=== PATIENT | male | born 1990 | race Caucasian/White ===

== ENCOUNTER 2023-03-14 14:30 | Emergency (ER) | payer SELFPAY ==
--- NOTE | 2023-03-14 16:15 | RAD REPORT ---
EXAM DESCRIPTION: RAD - Foot Right 3 View - 03/14/2023 3:36 pm CLINICAL HISTORY: Right foot swelling FINDINGS: No fracture or dislocation is seen No bone or joint abnormality noted
--- NOTE | 2023-03-14 16:37 | EDPHYS ---
Physician Documentation [facility] Name: Jacob Jackson Age: 32 yrs Sex: Male : 1990 Arrival Date: 03/14/2023 Time: 14:30 Bed 16 Private MD: ED Physician Garcia Kaplan HPI: 03/14 16:30 This 32 yrs old Male presents to ER via Ambulatory with complaints of Wound Infection. jmm 16:30 The patient presents with pain, that is acute. Onset: The symptoms/episode jmm began/occurred gradually. This is a 32 year old male with no chronic medical conditions that presents to the ED with complaints of swelling to the ball of his foot. Patient is concerned it may be the beginning of an infection. Denies fever, purulent drainage. Patient states he is exposed to salt water commonly. . Historical: - Allergies: 14:44 No Known Allergies; nj1 - PMHx: 14:44 None; nj1 - PSHx: 14:44 None; nj1 - Immunization history:: Client reports having NOT received the Covid vaccine. - Social history:: Smoking status: Patient reports the use of cigarette tobacco products, smokes one pack cigarettes per day. ROS: 16:30 Constitutional: Negative for fever, chills, and weight loss, Cardiovascular: Negative jmm for chest pain, palpitations, and edema, Respiratory: Negative for shortness of breath, cough, wheezing, and pleuritic chest pain. 16:30 Skin: Positive for swelling. 16:30 All other systems are negative. Exam: 16:30 Constitutional: This is a well developed, well nourished patient who is awake, alert, jmm and in no acute distress. Head/Face: atraumatic. Eyes: EOMI, no conjunctival erythema appreciated ENT: Moist Mucus Membranes Neck: Trachea midline, Supple Chest/axilla: Normal chest wall appearance and motion. Cardiovascular: Regular rate and rhythm. No edema appreciated Respiratory: Normal respirations, no respiratory distress appreciated Abdomen/GI: Non distended Back: Normal ROM 16:30 Skin: mild swelling noted to the ball of the right foot. . 16:30 Neuro: Orientation: is normal, Mentation: is normal, Memory: is normal. 16:30 Psych: Behavior/mood is pleasant, cooperative. Vital Signs: 14:40 BP 131 / 77; Pulse 80; Resp 18; Temp 98(O); Pulse Ox 99% ; Weight 68.04 kg; Height 6 nj1 ft. 2 in. ; Pain 0/10; 16:46 BP 128 / 76; Pulse 78; Resp 18; Pulse Ox 99% ; ko1 14:40 Body Mass Index 19.26 (68.04 kg, 187.96 cm) [facility] 14:40 Pain Scale: Adult nj1 MDM: 14:39 Patient medically screened. [facility] 16:34 Differential diagnosis: abscess, cellulitis, corns and callous. Data reviewed: vital [facility] signs, nurses notes. Counseling: I had a detailed discussion with the patient and/or guardian regarding: the historical points, exam findings, and any diagnostic results supporting the discharge/admit diagnosis, radiology results, the need for outpatient follow up, to return to the emergency department if symptoms worsen or persist or if there are any questions or concerns that arise at home. 03/14 14:42 Order name: Foot Right 3 View XRAY; Complete Time: 16:17 [facility] Administered Medications: 14:48 Drug: Doxycycline PO 100 mg Route: PO; [facility] Disposition: 17:18 Co-signature as Attending Physician, Garcia Kaplan MD I reviewed the patient's care rn provided by the Advanced Practice Provider and agree with the diagnosis and treatment plan. Disposition Summary: 03/14/23 16:36 Discharge Ordered Location: Home [facility] Condition: Stable [facility] Diagnosis - Pain in right foot [facility] Followup: [facility] - With: Omer Tenorio DPM - When: 2 - 3 days - Reason: Recheck today's complaints, Continuance of care, Re-evaluation by your physician Discharge Instructions: - Discharge Summary Sheet [facility] - Foot Pain [facility] Forms: - Medication Reconciliation Form [facility] - Thank You Letter [facility] - Antibiotic Education [facility] - Prescription Opioid Use [facility] - [email or web address] Prescriptions: - Doxycycline Hyclate 100 mg Oral Tablet - take 1 tablet by ORAL route every 12 hours; 20 tablet; Refills: 0, Product [facility] Selection Permitted Signatures: Dispatcher [employer] EDMilo Davis PA PA [facility] Garcia Kaplan MD MD rn Jaco, Norma, RN RN nj1
--- NOTE | 2023-03-14 16:37 | ER ---
Nurse's Notes [facility] Name: Jacob Jackson Age: 32 yrs Sex: Male : 1990 Arrival Date: 03/14/2023 Time: 14:30 Bed 16 Private MD: Diagnosis: Pain in right foot Presentation: 03/14 14:40 Chief complaint: Patient states: Right foot pain for about 3 days, getting worse. nj1 Concerned because he had an ulcer last year on the same spot while he was at [place]. Coronavirus screen: Vaccine status: Patient reports being unvaccinated. Ebola Screen: Patient denies travel to an Ebola-affected area in the 21 days before illness onset. Initial Sepsis Screen: Does the patient meet any 2 criteria? No. Patient's initial sepsis screen is negative. Does the patient have a suspected source of infection? No. Patient's initial sepsis screen is negative. Risk Assessment: Do you want to hurt yourself or someone else? Patient reports no desire to harm self or others. Onset of symptoms was March 11, 2023. 14:40 Method Of Arrival: Ambulatory [facility] 14:40 Acuity: DUANE 3 nj1 Historical: - Allergies: 14:44 No Known Allergies; nj1 - PMHx: 14:44 None; nj1 - PSHx: 14:44 None; nj1 - Immunization history:: Client reports having NOT received the Covid vaccine. - Social history:: Smoking status: Patient reports the use of cigarette tobacco products, smokes one pack cigarettes per day. Screenin:00 [facility] ED Fall Risk Assessment (Adult) History of falling in the last 3 months, ko1 including since admission No falls in past 3 months (0 pts) Confusion or Disorientation No (0 pts) Intoxicated or Sedated No (0 pts) Impaired Gait No (0 pts) Mobility Assist Device Used No (0 pt) Altered Elimination No (0 pt) Score/Fall Risk Level 0 - 2 = Low Risk Oriented to surroundings, Maintained a safe environment, Educated pt \T\ family on fall prevention, incl call for assistance when getting out of bed, Assessed \T\ reinforced patient's understanding of fall precautions, Provided non-skid footwear, Hourly rounding (assess needs \T\ fall precautionary measures) done, Used ambulatory aids as needed (educated on \T\ assisted with), Used gait belt as appropriate. Abuse screen: Denies threats or abuse. Denies injuries from another. Nutritional screening: No deficits noted. Tuberculosis screening: No symptoms or risk factors identified. Assessment: 15:00 General: Appears in no apparent distress. comfortable, Behavior is calm, cooperative, ko1 appropriate for age. Pain: Complains of pain in right foot. 15:00 Neuro: No deficits noted. Cardiovascular: No deficits noted. Respiratory: No deficits ko1 noted. GI: No deficits noted. : No deficits noted. EENT: No deficits noted. Derm: Reports pain that is 4 out of 10 on a pain scale. Musculoskeletal: No deficits noted. Vital Signs: 14:40 BP 131 / 77; Pulse 80; Resp 18; Temp 98(O); Pulse Ox 99% ; Weight 68.04 kg; Height 6 nj1 ft. 2 in. ; Pain 0/10; 16:46 BP 128 / 76; Pulse 78; Resp 18; Pulse Ox 99% ; ko1 14:40 Body Mass Index 19.26 (68.04 kg, 187.96 cm) [facility] 14:40 Pain Scale: Adult [facility] ED Course: 14:34 Patient arrived in ED. mr 14:34 Milo Canseco PA is PHCP. [facility] 14:34 Garcia Kaplan MD is Attending Physician. [facility] 14:44 Triage completed. nj1 14:45 Arm band placed on right wrist. nj1 15:00 Patient has correct armband on for positive identification. Bed in low position. Call ko1 light in reach. Side rails up X 1. Pulse ox on. NIBP on. Door closed. Noise minimized. Lights dimmed. Warm blanket given. 15:00 No provider procedures requiring assistance completed. ko1 15:17 Jolly Soler, RN is Primary Nurse. ko1 15:39 Foot Right 3 View XRAY In Process Unspecified. EDMS 16:36 Omer Tenorio DPM is Referral Physician. [facility] 16:46 Patient did not have IV access during this emergency room visit. ko1 Administered Medications: 14:48 Drug: Doxycycline PO 100 mg Route: PO; nj1 Medication: 15:00 VIS not applicable for this client. ko1 Outcome: 16:36 Discharge ordered by . [facility] 16:46 Discharged to home ambulatory. ko1 16:46 Condition: stable 16:46 Discharge instructions given to patient, family, Instructed on discharge instructions, follow up and referral plans. medication usage, Demonstrated understanding of instructions, follow-up care, medications, Prescriptions given X 1. 16:52 Patient left the ED. ko1 Signatures: Dispatcher [employer] EDMS Milo Canseco PA PA jmm Rivera, Mary mr Jolly Soler RN RN ko1 Desire Jose RN RN nj1
[2023-03-14 17:14] VITALS: TEMP 98; O2SAT 99
[2023-03-14 17:15] VITALS: BP 128/76
== END 2023-03-14 16:52 | disposition home or self-care (01) ==
LOC: ER 14:30
DX: M79.671 Pain in right foot (principal)

== ENCOUNTER 2023-03-16 15:49 | Emergency (ER) | payer SELFPAY ==
--- NOTE | 2023-03-16 16:39 | RAD REPORT ---
EXAM DESCRIPTION: RAD - Foot Right 3 View - 03/16/2023 4:33 pm CLINICAL HISTORY: PAIN COMPARISON: <Comparisons> FINDINGS: Tiny plantar calcaneal spur. No bone or joint abnormality. No aggressive marrow pattern.
[2023-03-16 16:56] LABS: Absolute Lymphocytes (CBC) 2.6 K/uL (0.7-4.9); Hematocrit 47.5 % (39.6-49.0); Lymphocytes % 26.6 % (15.3-44.8); MCV 96.2 fL (80-100); MPV 7.1 fL (7.6-11.3); RBC Red Blood Cell Count 4.94 M/uL (4.33-5.43)
[2023-03-16] MEDS ORDERED: KETOROLAC 30 MG/ML INJ ONE (17:07)
[2023-03-16 17:12] LABS: BUN Blood Urea Nitrogen 12 mg/dL (7-18); Bicarbonate 27 mEq/L (21-32); Glomerular Filtration Rate 112 ml/min (=/>90); Glucose Level 102 mg/dL (74-106); Potassium 4.3 mEq/L (3.5-5.1); Sodium Level 140 mEq/L (136-145)
[2023-03-16 17:18] LABS: C-Reactive Protein < 2.90 mg/L (<3.00)
--- NOTE | 2023-03-16 18:05 | RAD REPORT ---
EXAM DESCRIPTION: US - Extremity Nonvascular Limited - 03/16/2023 5:53 pm CLINICAL HISTORY: right foot for abscess COMPARISON: <Comparisons> TECHNIQUE: Real-time sonographic evaluation of the area of interest was performed. FINDINGS: No definitive abscess is seen. MR imaging could be performed for followup if symptomology persists.
--- NOTE | 2023-03-16 18:48 | EDPHYS ---
Physician Documentation [facility] Name: Jacob Jackson Age: 32 yrs Sex: Male : 1990 Arrival Date: 03/16/2023 Time: 15:49 Bed 9 Private MD: ED Physician Luther Marquis HPI: 03/16 16:25 This 32 yrs old Male presents to ER via Ambulatory with complaints of Foot Pain. cp 16:25 The patient presents with pain. The complaints affect the plantar surface of right cp foot. Context: concern for infection. 16:25 Associated signs and symptoms: Pertinent positives: swelling, Pertinent negatives calf cp tenderness, fever, numbness, warmth. Patient returns to ED after being seen here 2 days ago for right foot pain. Patient reports continued pain and swelling and has been taking prescribed doxycycline. Patient concerned about reoccurrence of an infection to right foot that he suffered years ago that required surgical intervention. Historical: - Allergies: 16:02 No Known Allergies; ld1 - Home Meds: 16:02 None [Active]; ld1 - PMHx: 16:02 None; ld1 - PSHx: 16:02 None; ld1 - Immunization history:: Adult Immunizations up to date. - Social history:: Smoking status: Patient reports the use of cigarette tobacco products, smokes one-half pack cigarettes per day, Patient uses alcohol, occasionally. ROS: 16:30 MS/extremity: Positive for pain, swelling, tenderness. cp 16:30 Eyes: Negative for injury, pain, redness, and discharge. cp 16:30 Constitutional: Negative for body aches, chills, fever, poor PO intake. 16:30 ENT: Negative for drainage from ear(s), ear pain, sore throat, difficulty swallowing, difficulty handling secretions. 16:30 Cardiovascular: Negative for chest pain, edema, palpitations. 16:30 Respiratory: Negative for cough, shortness of breath, wheezing. 16:30 Abdomen/GI: Negative for abdominal pain, nausea, vomiting, and diarrhea. 16:30 Neuro: Negative for altered mental status, dizziness, headache, weakness. 16:30 All other systems are negative. Exam: 16:35 Constitutional: The patient appears in no acute distress, alert, awake, non-toxic, well cp developed, well nourished. 16:35 Head/Face: Normocephalic, atraumatic. cp 16:35 Eyes: Periorbital structures: appear normal, Conjunctiva: normal, no exudate, no cp injection, Sclera: no appreciated abnormality, Lids and lashes: appear normal, bilaterally. 16:35 ENT: External ear(s): are unremarkable, Nose: is normal, Mouth: Lips: moist, Oral mucosa: moist, Posterior pharynx: is normal, airway is patent. 16:35 Chest/axilla: Inspection: normal. 16:35 Cardiovascular: Rate: normal, Rhythm: regular. 16:35 Respiratory: the patient does not display signs of respiratory distress, Respirations: normal, no use of accessory muscles, no retractions, labored breathing, is not present, Breath sounds: are clear throughout, no decreased breath sounds, no stridor, no wheezing. 16:35 Abdomen/GI: Exam negative for discomfort, distension, guarding, Inspection: abdomen appears normal. 16:35 Back: pain, is absent, ROM is normal. cp 16:35 Musculoskeletal/extremity: Extremities: grossly normal except: noted in the right foot: tenderness, pain, mild swelling noted at ball of right foot plantar side, overlying skin warm and dry with no erythema and no open wounds. Vital Signs: 16:01 Pulse 84; Resp 18; Temp 98.5(TE); Pulse Ox 98% on R/A; Weight 68.04 kg; Height 6 ft. 2 ld1 in. ; Pain 4/10; 16:03 BP 102 / 84; ld1 19:18 BP 112 / 78; Pulse 74; Resp 18; Pulse Ox 100% ; mb9 16:01 Body Mass Index 19.26 (68.04 kg, 187.96 cm) ld1 16:01 Pain Scale: Adult ld1 MDM: 15:54 Patient medically screened. kb 17:00 Differential diagnosis: closed fracture, contusion, tendonitis, abscess, cellulitis. cp 18:47 Data reviewed: vital signs, nurses notes, lab test result(s), radiologic studies, plain cp films, ultrasound. 18:47 Consideration of Admission/Observation Escalation of care including cp admission/observation considered. I considered the following discharge prescriptions or medication management in the emergency department Medications were administered in the Emergency Department. See MAR. Counseling: I had a detailed discussion with the patient and/or guardian regarding: the historical points, exam findings, and any diagnostic results supporting the discharge/admit diagnosis, lab results, radiology results, the need for outpatient follow up, for definitive care, a triage technician, to return to the emergency department if symptoms worsen or persist or if there are any questions or concerns that arise at home. Response to treatment: the patient's symptoms have mildly improved after treatment. ED course: VSS. Discussed results of today's test. Normal WBC, CRP and US negative for abscess. Will add Cipro and discharge to home for continued monitoring. 03/16 16:23 Order name: CBC with Diff; Complete Time: 17:21 cp 03/16 17:22 Interpretation: Reviewed. cp 03/16 16:23 Order name: CRP; Complete Time: 17:21 cp 03/16 16:23 Order name: BMP; Complete Time: 17:21 cp 03/16 16:20 Order name: XRAY Foot RIGHT 3 View; Complete Time: 17:21 cp 03/16 17:22 Interpretation: Report reviewed. cp 03/16 16:23 Order name: US Extrmty Nonvasular Limited; Complete Time: 18:18 cp 03/16 18:19 Interpretation: Report reviewed. cp Administered Medications: 17:05 Drug: Ketorolac IVP 15 mg Route: IVP; Site: right antecubital; iw 19:18 Follow up: Response: No adverse reaction mb9 19:18 Drug: Ciprofloxacin PO 500 mg Route: PO; mb9 19:18 Follow up: Response: No adverse reaction mb9 Disposition: 20:11 Co-signature as Attending Physician, Luther Marquis MD I agree with the assessment and kdr plan of care. Disposition Summary: 03/16/23 18:48 Discharge Ordered Location: Home cp Problem: an ongoing problem cp Symptoms: have improved cp Condition: Stable cp Diagnosis - Pain in right foot cp Followup: cp - With: Tawanda Charles DPM - When: 1 - 2 days - Reason: Recheck today's complaints Discharge Instructions: - Discharge Summary Sheet cp - Foot Pain cp Forms: - Medication Reconciliation Form cp - Thank You Letter cp - Antibiotic Education cp - Prescription Opioid Use cp - [employer]_Portal_[email or web address] cp Prescriptions: - Cipro 500 mg Oral Tablet - take 1 tablet by ORAL route every 12 hours for 10 days; 20 tablet; Refills: 0, cp Product Selection Permitted - Diclofenac Sodium 75 mg Oral Tablet Sustained Release - take 1 tablet by ORAL route 2 times per day; 30 tablet; Refills: 0, Product cp Selection Permitted Signatures: Dispatcher [employer] Maria Antonia Cesar, RAMONAC [employer] DISPLAY SPECIALIST-Luther Armando MD MD kdr Williams, Irene RN RN iw Bj Johnson PA PA cp Sims, Lauren, RN RN ld1 Irina Chamorro RN RN mb9
--- NOTE | 2023-03-16 18:48 | ER ---
Nurse's Notes [facility] Name: Jacob Jackson Age: 32 yrs Sex: Male : 1990 Arrival Date: 03/16/2023 Time: 15:49 Bed 9 Private MD: Diagnosis: Pain in right foot Presentation: 03/16 16:01 Chief complaint: Patient states: Pain to bottom of right foot. Denies injury. Reports ld1 previous ulcer to right foot. Coronavirus screen: At this time, the client does not indicate any symptoms associated with coronavirus-19. Ebola Screen: No symptoms or risks identified at this time. Initial Sepsis Screen: Does the patient meet any 2 criteria? No. Patient's initial sepsis screen is negative. Does the patient have a suspected source of infection? No. Patient's initial sepsis screen is negative. Risk Assessment: Do you want to hurt yourself or someone else? Patient reports no desire to harm self or others. Onset of symptoms was March 16, 2023 at 16:02. 16:01 Method Of Arrival: Ambulatory ld1 16:01 Acuity: DUANE 4 ld1 Triage Assessment: 16:02 General: Appears in no apparent distress. comfortable, Behavior is calm, cooperative, ld1 appropriate for age. Pain: Complains of pain in right foot Pain does not radiate. Pain currently is 4 out of 10 on a pain scale. Quality of pain is described as throbbing. EENT: No signs and/or symptoms were reported regarding the EENT system. Neuro: Level of Consciousness is awake, alert, obeys commands, Oriented to person, place, time, situation. Cardiovascular: Capillary refill < 3 seconds Patient's skin is warm and dry. Respiratory: Airway is patent Respiratory effort is even, unlabored. GI: Abdomen is flat, non-distended. : No signs and/or symptoms were reported regarding the genitourinary system. Derm: No signs and/or symptoms reported regarding the dermatologic system. Musculoskeletal: No signs and/or symptoms reported regarding the musculoskeletal system. Historical: - Allergies: 16:02 No Known Allergies; ld1 - Home Meds: 16:02 None [Active]; ld1 - PMHx: 16:02 None; ld1 - PSHx: 16:02 None; ld1 - Immunization history:: Adult Immunizations up to date. - Social history:: Smoking status: Patient reports the use of cigarette tobacco products, smokes one-half pack cigarettes per day, Patient uses alcohol, occasionally. Screenin:06 [facility] ED Fall Risk Assessment (Adult) [facility] ED Fall Risk Assessment (Adult) iw Score/Fall Risk Level 0 - 2 = Low Risk. 17:07 Abuse screen: Denies threats or abuse. Denies injuries from another. Nutritional iw screening: No deficits noted. Tuberculosis screening: No symptoms or risk factors identified. Assessment: 17:06 Reassessment: Patient appears in no apparent distress at this time. Patient and/or iw family updated on plan of care and expected duration. Pain level reassessed. Patient is alert, oriented x 3, equal unlabored respirations, skin warm/dry/pink. Vital Signs: 16:01 Pulse 84; Resp 18; Temp 98.5(TE); Pulse Ox 98% on R/A; Weight 68.04 kg; Height 6 ft. 2 ld1 in. ; Pain 4/10; 16:03 BP 102 / 84; ld1 19:18 BP 112 / 78; Pulse 74; Resp 18; Pulse Ox 100% ; mb9 16:01 Body Mass Index 19.26 (68.04 kg, 187.96 cm) ld1 16:01 Pain Scale: Adult ld1 ED Course: 15:52 Patient arrived in ED. im 15:53 Maria Antonia Valdes FNP-C is PHCP. kb 15:53 Luther Marquis MD is Attending Physician. kb 16:02 Triage completed. ld1 16:02 Arm band placed on right wrist. ld1 16:05 Bj Johnson PA is PHCP. cp 16:05 Gurinder Riggs MD is Attending Physician. cp 16:24 Luther Marquis MD is Attending Physician. cp 16:35 XRAY Foot RIGHT 3 View In Process Unspecified. EDMS 16:50 Inserted saline lock: 20 gauge in right antecubital area, using aseptic technique. zm Blood collected. 16:50 BMP Sent. zm 16:50 CRP Sent. zm 16:50 CBC with Diff Sent. zm 16:52 Jacqueline Lemons, RN is Primary Nurse. iw 17:15 Patient has correct armband on for positive identification. iw 17:54 US Extrmty Nonvasular Limited In Process Unspecified. EDMS 18:47 Tawanda Charles DPM is Referral Physician. cp 19:18 No provider procedures requiring assistance completed. IV discontinued, intact, mb9 bleeding controlled, No redness/swelling at site. Pressure dressing applied. Administered Medications: 17:05 Drug: Ketorolac IVP 15 mg Route: IVP; Site: right antecubital; iw 19:18 Follow up: Response: No adverse reaction mb9 19:18 Drug: Ciprofloxacin PO 500 mg Route: PO; mb9 19:18 Follow up: Response: No adverse reaction mb9 Medication: 17:07 VIS not applicable for this client. iw Outcome: 18:48 Discharge ordered by MD. cp 19:18 Discharged to home with crutches. mb9 19:18 Condition: stable 19:18 Discharge instructions given to patient, Instructed on discharge instructions, follow up and referral plans. Demonstrated understanding of instructions, follow-up care, medications, Prescriptions given X 2. 19:18 Patient left the ED. mb9 Signatures: Dispatcher [employer] EDMS Maria Antonia Valdes, PATIENT RELATIONS SPECIALIST-C PATIENT RELATIONS SPECIALIST-Ckb Jacqueline Lemons, RN RN iw Bj Johnson, PA PA cp Eden Manriquez, RN RN ld1 Cristina Brizuela, Irina Fermin RN RN mb9 Carolyn Osei Corrections: (The following items were deleted from the chart) 17:07 17:06 [facility] ED Fall Risk Assessment (Adult) iw iw
[2023-03-16] MEDS ORDERED: CIPROFLOXACIN HCL 500 MG TAB ONE (19:21)
[2023-03-16 19:34] VITALS: TEMP 98.5
[2023-03-16 19:45] VITALS: BP 112/78; O2SAT 100
== END 2023-03-16 19:18 | disposition home or self-care (01) ==
LOC: ER 15:49
DX: M79.671 Pain in right foot (principal)
CPT/HCPCS: 36415; 76882; 80048; 85025; 86140; 96374; 99284